=== PATIENT | female | born 1955 ===

== ENCOUNTER 2017-09-08 02:34 | Emergency (ER) | payer MEDICARE ==
[2017-09-08 02:35] VITALS: BMI 24.0
[2017-09-08 02:58] VITALS: TEMP 99.2
[2017-09-08] MEDS ORDERED: Sodium Chloride 0.9% 1,000 ML IV ONE (02:59)
--- NOTE | 2017-09-08 02:59 | C.PDOC ---
History Of Present Illness 62 year old female presents to the ED c/o abdominal pain. Patient describes her pain as stabbing, sharp located in her RUQ radiating to her right shoulder. Patient denies fever, chills, SOB, CP, nausea, vomit, diarrhea, back pain. Time Seen by Provider: 09/08/17 02:59 Chief Complaint (Nursing): Abdominal Pain History Per: Patient History/Exam Limitations: no limitations Onset/Duration Of Symptoms: Days Current Symptoms Are (Timing): Still Present Location Of Pain/Discomfort: RUQ Radiation Of Pain To:: Other (shoulder) Quality Of Discomfort: "Pain" Exacerbating Factors: None Alleviating Factors: None Recent travel outside of the [place]: No Additional History Per: Patient Abnormal Vaginal Bleeding: No Past Medical History Reviewed: Historical Data, Nursing Documentation, Vital Signs Vital Signs: Last Vital Signs Temp 99.2 F 09/08/17 02:54 Pulse 103 H 09/08/17 05:12 Resp 15 09/08/17 05:12 BP 140/65 09/08/17 05:12 Pulse Ox 97 09/08/17 05:17 - Medical History PMH: Anemia, Arthritis (KNEE), Depression, Diabetes, Gastritis, HTN, Hypercholesterolemia, Hypothyroidism, Chronic Kidney Disease Denies: Atrial Fibrillation, Cardia Arrhythmia, CHF Surgical History: Coronary Stent - [facility] Procedures AMPUTATION STUMP MARSHA (11/29/14) AMPUTATION THROUGH FOOT (08/21/14) ANGIOPLASTY OF OTHER NON-CORONARY VESSEL(S) (12/13/14) ATHERECTOMY OF OTHER NON-CORONARY VESSEL(S) (12/13/14) BYPASS R FEM ART TO LOW EX VEIN WITH AUTOL VN, OPEN APPROACH (03/31/15) CENTRAL VENOUS CATHETER PLACEMENT WITH GUIDANCE (10/24/14) CLOSURE SKIN & SUBCUTANEOUS NEC (11/06/13) CONTRAST AORTOGRAM (10/24/14) CONTRAST ARTERIOGRAM-LEG (10/24/14) DETACHMENT AT RIGHT LOWER LEG, LOW, OPEN APPROACH (04/28/15) DILATION OF RIGHT EXTERNAL ILIAC ARTERY, PERC APPROACH (03/31/15) FREE SKIN GRAFT NEC (11/29/14) INSEJ [id number] PERIPHERAL NON-CORONARY VES STENT(S) (08/07/14) INSEJ OF DRUG-ELUTING STENT(S) OF SUPERFICIAL FEMORAL ARTERY (12/13/14) INSERTION OF INFUSION DEVICE INTO R ATRIUM, PERC APPROACH (04/28/15) INSERTION OF ONE VASCULAR STENT (12/13/14) LOC EXC LES METATAR/TAR (11/29/14) LOWER LIMB ENDARTERECT (12/24/14) PLAIN RADIOGRAPHY OF ABDOMINAL AORTA USING OTHER CONTRAST (03/31/15) PLAIN RADIOGRAPHY OF OTHER LOWER ARTERIES USING OTH CONTRAST (03/31/15) PROCEDURE ON SINGLE VESSEL (12/24/14) TETANUS TOXOID ADMINIST (11/06/13) TRANSFUSE NONAUT RED BLOOD CELLS IN PERIPH VEIN, PERC (04/28/15) Family History: States: No Known Family Hx - Social History Hx Tobacco Use: No Hx Alcohol Use: No Hx Substance Use: No - Immunization History Hx Tetanus Toxoid Vaccination: No Hx Influenza Vaccination: No Hx Pneumococcal Vaccination: No Review Of Systems Constitutional: Negative for: Fever, Chills Cardiovascular: Negative for: Chest Pain Respiratory: Negative for: Shortness of Breath Gastrointestinal: Positive for: Abdominal Pain Musculoskeletal: Positive for: Shoulder Pain Skin: Negative for: Rash Neurological: Negative for: Weakness, Numbness Physical Exam - Physical Exam Appears: Non-toxic, No Acute Distress Skin: Warm, Dry Head: Normacephalic Eye(s): bilateral: Normal Inspection Nose: No Discharge Oral Mucosa: Moist Neck: Supple Chest: Symmetrical Cardiovascular: Rhythm Regular, No Murmur Respiratory: No Rales, No Rhonchi, No Wheezing Gastrointestinal/Abdominal: Soft, Tenderness (RUQ), Guarding (voluntary), No Rebound Back: No CVA Tenderness Extremity: No Tenderness, No Swelling, Other (r bka) Neurological/Psych: Oriented x3 Gait: With Assistance ED Course And Treatment - Laboratory Results Result Diagrams: 09/08/17 03:16 09/08/17 03:16 ECG: Interpreted By Me, Viewed By Me ECG Rhythm: Sinus Rhythm (92), Nonspecific Changes O2 Sat by Pulse Oximetry: 97 (On RA) Pulse Ox Interpretation: Normal Progress Note: Plan: - Labs. - Morphine 2 mg iVP. - Pepcid 20 mg IVP. - Zofran 4 mg IVP. - IV fluids. - UA. pt feels fine. Does not want to be hospitalized. Will return if symptoms recur Reevaluation Time: 05:55 Reassessment Condition: Improved Disposition Counseled Patient/Family Regarding: Studies Performed, Diagnosis, Need For Followup, Rx Given - Disposition Referrals: Leonidas Espinal [Staff Provider] - Disposition: HOME/ ROUTINE Disposition Time: 02:59 Condition: FAIR Additional Instructions: Please return if symptoms recur Prescriptions: metroNIDAZOLE [Flagyl] 500 mg PO TID #21 tab Ondansetron ODT [Zofran ODT] 1 odt PO BID PRN #6 odt PRN Reason: Nausea/Vomiting traMADol [Ultram] 50 mg PO TID PRN #15 tab PRN Reason: Pain, Severe (8-10) Instructions: Colic (DC), Hyperglycemia, Adult (DC) Forms: [employer] (Mauritian) - Clinical Impression Clinical Impression: Abdominal pain, Biliary colic, Hyperglycemia - Scribe Statement The provider has reviewed the documentation as recorded by the Scribe Isrrael Ellison All medical record entries made by the Scribe were at my direction and personally dictated by me. I have reviewed the chart and agree that the record accurately reflects my personal performance of the history, physical exam, medical decision making, and the department course for this patient. I have also personally directed, reviewed, and agree with the discharge instructions and disposition.
[2017-09-08] MEDS ORDERED: Sodium Chloride 0.9% 1,000 ML ONE (03:18)
[2017-09-08] MEDS ORDERED: Morphine 4 MG/ML VIAL ONE ×2 (03:35→05:05)
[2017-09-08 03:46] LABS: PROTHROMBIN TIME 11.7 SECONDS (9.7-12.2)
[2017-09-08 03:47] LABS: ALBUMIN 4.1 g/dL (3.5-5.0); ALT/SGPT 25 U/L (9-52); AST/SGOT 22 U/L (14-36); BLOOD UREA NITROGEN 25 mg/dL (7-17); CALCIUM 9.4 mg/dl (8.6-10.4); GFR AFRICAN-AMERICAN > 60; GFR NON-AFRICAN AMERICAN 56; LIPASE 97 U/L (23-300)
[2017-09-08 04:06] LABS: HEMOGLOBIN 11.6 g/dL (11.0-16.0); MEAN CELL VOLUME 88.5 fL (81.0-99.0); WHITE BLOOD COUNT 11.7 K/uL (4.8-10.8)
[2017-09-08 04:07] LABS: BASO % 0.2 % (0.0-2.0); EOS % 0.1 % (0.0-4.0); LYMPH # 0.7 K/uL (1.0-4.3); LYMPH % 5.9 % (20.0-40.0); MEAN CORPUSCULAR HEMOGLOBIN 29.9 pg (27.0-31.0); MEAN CORPUSCULAR HGB CONC 33.8 g/dL (33.0-37.0); MEAN PLATELET VOLUME 9.7 fL (7.2-11.7); MONO # 0.8 K/uL (0.0-0.8); MONO % 7.1 % (0.0-10.0); NEUT # 10.1 K/uL (1.8-7.0); NEUT % 86.7 % (50.0-75.0); PLATELET COUNT 246 K/uL (130-400); RED CELL DISTRIBUTION WIDTH 13.3 % (11.5-14.5)
[2017-09-08 04:23] LABS: LYMPHOCYTE 6 % (20-40); MONOCYTE 6 % (0-10); NEUTROPHIL 88 % (50-75); PLATELET ESTIMATE NORMAL (NORMAL); TOTAL CELLS COUNTED 100
[2017-09-08] MEDS ORDERED: Iohexol 350mg/ml 100 ML ONE (04:31)
[2017-09-08 05:17] VITALS: O2SAT 97
--- NOTE | 2017-09-08 05:45 | CT ---
EXAM: CT Abdomen and Pelvis With Intravenous Contrast CLINICAL HISTORY: 62 years old, female; Pain; Abdominal pain; Prior surgery; Surgery type: Right leg amputation; Patient HX: 06-07-17 images sent; Additional info: Ruq abd pain TECHNIQUE: Axial computed tomography images of the abdomen and pelvis with intravenous contrast. All CT scans at this facility use one or more dose reduction techniques, viz.: automated exposure control; ma/kV adjustment per patient size (including targeted exams where dose is matched to indication; i.e. head); or iterative reconstruction technique. Coronal and sagittal reformatted images were created and reviewed. CONTRAST: 100 mL of [id number] administered intravenously. COMPARISON: CT - ANGIOGRAPHY ABD ILEOFEM RUNOFF 2017-06-07 11:24 FINDINGS: Lung bases: There is minimal bibasilar atelectasis. ABDOMEN: Liver: Unremarkable. No mass. Gallbladder and bile ducts: Distended gallbladder. No calcified stones. No ductal dilation. Pancreas: Unremarkable. No mass. No ductal dilation. Spleen: Unremarkable. No splenomegaly. Adrenals: Unremarkable. No mass. Kidneys and ureters: Unremarkable. No solid mass. No hydronephrosis. Stomach and bowel: There is moderate colonic constipation. No obstruction. No mucosal thickening. Colitis Appendix: A normal appendix is identified. PELVIS: Bladder: Unremarkable. No mass. Reproductive: Unremarkable as visualized. ABDOMEN and PELVIS: Intraperitoneal space: Unremarkable. No free air. No significant fluid collection. Bones/joints: No acute fracture. No dislocation. Soft tissues: Unremarkable. Vasculature: The vasculature demonstrates diffuse severe atherosclerotic calcification. No abdominal aortic aneurysm. Lymph nodes: Unremarkable. No enlarged lymph nodes. IMPRESSION: Distended gallbladder. Recommend correlation with laboratory values. If clinically warranted, right upper quadrant ultrasound could be obtained.
[2017-09-08 06:16] VITALS: BP 112/56; PULSE 80; RESP 20
[2017-09-08 08:31] LABS: URINE BILIRUBIN NEGATIVE (NEGATIVE); URINE CLARITY Hazy (Clear); URINE COLOR YELLOW (YELLOW); URINE GLUCOSE (UA) 3+ mg/dL (Normal)
[2017-09-08 08:32] LABS: URINE BLOOD 1+ (NEGATIVE); URINE LEUKOCYTE ESTERASE 1+ Leu/uL (Negative); URINE PROTEIN 2+ mg/dL (NEGATIVE); URINE UROBILINOGEN Normal mg/dL (0.2-1.0)
[2017-09-08 08:33] LABS: SQUAMOUS EPITHIAL 1 /hpf (0-5); URINE BACTERIA RARE (<OCC)
== END 2017-09-08 06:05 | disposition home or self-care (01) ==
LOC: C.ER 02:34
DX: E11.65 Type 2 diabetes mellitus with hyperglycemia (principal); K80.50 Calculus of bile duct without cholangitis or cholecystitis without obstruction; R10.9 Unspecified abdominal pain; E78.00 Pure hypercholesterolemia, unspecified; I12.9 Hypertensive chronic kidney disease with stage 1 through stage 4 chronic kidney disease, or unspecified chronic kidney disease; E11.22 Type 2 diabetes mellitus with diabetic chronic kidney disease; N18.9 Chronic kidney disease, unspecified; Z87.891 Personal history of nicotine dependence
CPT/HCPCS: 74177; 80053; 81001; 82009; 83690; 85025; 85610; 85730; 96374; 96375; 96376; 99285; J1885; J2270; J2405; J7040; Q9967

== ENCOUNTER 2018-08-30 08:52 | Outpatient (CLI) | payer MEDICARE | END 2018-08-30 08:53 | disposition home or self-care (01) | LOC: C.CTH 08:52 ==

== ENCOUNTER 2018-09-13 09:24 | Outpatient (CLI) | payer MEDICARE | END 2018-09-13 09:25 | disposition home or self-care (01) | LOC: C.RADIC 09:24 | DX: M25.572 Pain in left ankle and joints of left foot (principal) ==

== ENCOUNTER 2018-10-21 07:21 | Outpatient (CLI) | payer MEDICARE | END 2018-10-21 07:22 | disposition home or self-care (01) | LOC: C.MAMMO 07:22 | DX: Z12.31 Encounter for screening mammogram for malignant neoplasm of breast (principal) ==